=== PATIENT | female | born 1945 ===

== ENCOUNTER 2018-01-07 07:52 | Day surgery (SDC) | payer MEDICARE, OTHER ==
[2017-12-30 07:59] VITALS: BMI 39.6
[2018-01-07] MEDS ORDERED: Iodixanol 320 MG/ML 100 ML BOTTLE IV ONE (12:34)
[2018-01-07] MEDS ORDERED: Midazolam 2 MG/2 ML VIAL ONE (12:35)
--- NOTE | 2018-03-07 04:38 | CARDCATH ---
PROCEDURE DATE: 01/07/2018 INDICATION: Ms. Joyce Gasca is a 72-year-old female with history of hypertension, diabetes, and hyperlipidemia, who was seen and referred by for evaluation of symptoms of atypical chest pain. The patient had prior stress test which showed possible ischemia in the left circumflex territory, and therefore was brought to the catheterization laboratory technician for further evaluation and treatment. PROCEDURES PERFORMED: Left heart catheterization with selective left and right coronary angiogram, left ventriculogram, wrist band for hemostasis on the radial artery. ANGIOGRAPHIC FINDINGS: Left main is a large-sized vessel with bifurcation into LAD and left circumflex coronary artery. Left circumflex runs in the AV groove with no obstructive disease. It continues as a small branch in the AV groove and gives off a large obtuse marginal branch which feeds the OM2 vessel. OM1 is a small-sized vessel, free of any obstructive disease. Left circumflex system proximal, mid, distal is 0%, mid 40%, distal 0% LAD. Large-sized vessel gives obtuse small diagonal branches. LAD, mild nonobstructive disease, mid LAD 30-40% stenosis, diagonal proximal 30-40% stenosis. RCA is a large-sized vessel, has calcific nonobstructive 40% mid lesion. Right PDA has proximal 55% nonobstructive stenosis. Ejection fracture 65%, normal EDP. IMPRESSION: Mild nonobstructive coronary artery disease. RECOMMENDATIONS: Continue aggressive medical management, risk factor modification. Albino Chavarria MD
== END 2018-01-07 18:15 | disposition home or self-care (01) ==
LOC: C.CATHLAB 07:52
PROVIDERS: ATTEND Internal Medicine Interventional Cardiology
DX: R94.39 Abnormal result of other cardiovascular function study (principal); I25.10 Atherosclerotic heart disease of native coronary artery without angina pectoris; E11.9 Type 2 diabetes mellitus without complications; E78.5 Hyperlipidemia, unspecified
CPT/HCPCS: 93458; C1769; C1887; C1894; J1644; J2250; J3010; Q9967